=== PATIENT | female | born 1950 | race Caucasian/White ===

== ENCOUNTER 2016-04-19 08:22 | Emergency (ER) | payer OTHER ==
[2016-04-19] MEDS ORDERED: ONDANSETRON 4 MG/2 ML VIAL IVP ONE (08:37)
[2016-04-19] MEDS ORDERED: HYDROcodone-APAP 5 MG -325 MG TABLET PO ONE (08:37)
[2016-04-19] MEDS ORDERED: DIPH,PERTUSS,TET(ADACEL) VAC/PF 0.5 ML (Tdap) IM ONE (08:40)
[2016-04-19 08:44] VITALS: RESP 16; TEMP 97.1
--- NOTE | 2016-04-19 08:45 | PDOC ---
Fall HPI - General Chief Complaint: Fall Stated Complaint: wrist pain Date Seen by Provider: 04/19/16 Time Seen by Provider: 08:39 Source: POSITIVE: Patient, Other (daughter) Exam Limitations: POSITIVE: No limitations Nurse's Notes Reviewed & Considered: Yes - History of Present Illness Initial Comments: The patient comes in today after a fall. Patient was out chasing after her horses in her slippers and house coat when she slipped on the ice and fell. This resulted in her hitting her head, her glasses abraded the inner [place] right side of her nose, bruising over her forehead, wrist pain and bruising on the right, left sided elbow, left sided knee and tibial abrasions and pain. Fall was caused by a trip over a wire. Have you received a tetanus shot in the past 10 years?: No Body Location Affected: REPORTS: Head, Upper Extremity (L), Upper Extremity (R) , Lower Extremity (L), Forehead, Face Timing: REPORTS: Abrupt Duration: 1/2 hour Severity: Moderate Context of Fall: REPORTS: Tripped Location of Fall: REPORTS: Home Fell From Height (in feet): 0 Quality: REPORTS: "Pain" Associated Symptoms: REPORTS: Dazed Location of Injuries / Pain: REPORTS: Right, Left, Face, Nose, Elbow, Wrist, Knee Any Prior Injuries Related to Current Complaint?: No - Patient Home Medications Home Medications: Home Medications Calcium 500 mg PO DAILY 01/23/11 Estrogens, Conj Vaginal Cream [Premarin Vaginal Cream] 1 appful TOPICAL PRN Lutein 20 mg PO AC cap 02/01/14 HYDROcodone/APAP 5/325 Tab [[place] 5/325 Tab] 1 - 2 each PO Q6H PRN #20 tablet - Patient Allergies Allergies/Adverse Reactions: Allergies Allergy/AdvReac Type Severity Reaction Status Date / Time Sulfa (Sulfonamide AdvReac Intermediate VOMITING Verified 04/19/16 08:29 Antibiotics) Past Medical History - heen HEENT History: Denies History Cardiovascular History: Denies History Additional Cardiovasular History: 08/01/13 ATRIAL TACHYCARDIA, WORE A HOLTER MONITER, STARTED ON VERAPAMIL WITH NO FURTHER OCCURENCES Respiratory History: Denies History Gastrointestinal History: Denies History Genitourinary History: Denies History Endocrine History: Denies History Musculoskeletal History:  Prosthesis or Implant: No Additional Musculoskeletal History: PT HAS ERYTHEMA NODOSUM, ALSO HAS MUSCLE PROBLEM AND USES PREDNISONE NEEDED. LAST DOSE 2 MONTHS. Neurological History: Denies History Blood Disorders: Denies History Psychiatric History: Denies History History of Sexually Transmitted Diseases: No Cancer History: Denies History History of MDRO: No History of Other Communicable Diseases: No Alcohol Use: None Substance Use Type: None Previous Surgical History: No Type / Date of Surgery: COLONOSCOPY/ TUBAL Anesthesia Reactions: No Malignant Hyperthermia: No Significant Family History: No pertinent family hx ROS - Limitations ROS Limitations: No Limitations Constitution: REPORTS: Denies Symptoms Cardiovascular: REPORTS: Denies Cardiac Symptoms Respiratory: REPORTS: Denies Resp Symptoms Neurological: REPORTS: Denies Neuro Symptoms Gastrointestinal: REPORTS: Nausea Endocrine: REPORTS: Denies Symptoms Musculoskeletal: REPORTS: Joint Pain Genitourinary: REPORTS: Denies Symptoms Eyes: REPORTS: Denies Symptoms ENT: REPORTS: Nose Pain Skin: REPORTS: Denies Skin Symptoms Lympathic: REPORTS: Denies Lympathic Symptoms Immunologic: POSITIVE: Denies Symptoms Psychiatric: POSITIVE: Denies Psych Symptoms Fall Physical Exam - General Appearance General Appearance: POSITIVE: Alert, Cooperative, Mild Distress - HEENT HEENT: POSITIVE: Eyes Inspection Nml, Ears Inspection Nml, Oral/Dental Inspect. Nml, Pharynx Inspect. Nml, PERRL, EOMI, Other (Abrasion bridge of the nose on the right. Dried blood in the bilateral nares present.) - Pupil Size Pupil Size: 4 mm: Bilateral - Neck Neck: POSITIVE: Non Tender, Painless ROM, Trachea Midline - Respiratory / CVS Respiratory / CVS: POSITIVE: Chest Non Tender, No Ecchymosis, Breath Sounds Normal, No Respiratory Distress, Heart Sounds Normal, Regular Rate/Rhythm - Abdomen Abdomen: Soft: (All Quadrants), Normal Bowel Sounds: (All Quadrants), Denies Tenderness: (All Quadrants) - Neuro / Psych Neuro / Psych: POSITIVE: Oriented X3, hand developer Normal As Tested, Motor Normal, Sensation Normal, Mood Appropriate, Affect Appropriate - Skin Skin: POSITIVE: Warm, Dry, Laceration (Patient with multiple skin lesions including bridge or nose, left elbow, left knee.) - Back Back: POSITIVE: Normal Inspection, No CVA Tenderness, Non Tender, Painless ROM - Extremities Extremity Assessment: Tender: (RUE), (LUE), (LLE), Ecchymosis: (RUE), (LUE), ( LLE), Abrasion: (RUE), (LUE), (LLE), Avulsion: (LLE), (LUE), [place] Tenderness: (RUE), (LUE), (LLE) Joint Exam: POSITIVE: Painful (Right wrist, left elbow, left knee.) Procedures - Laceration/Wound Repair Did patient have a laceration repair: No Fall Progress - Results Reviewed by me Xrays/CTs/US Reviewed by me: No Discussed with Radiologist: No Lab Results Reviewed: Yes Lab Results:: Laboratory Results 04/19/16 Range/Units 09:15 WBC 10.88 H (4.8-10.8) 10^3/uL RBC 4.47 (4.20-5.40) 10^6/uL Hgb 13.0 (12.0-16.0) g/dL Hct 39.4 (37.0-47.0) % MCV 88.1 (81-99) FL MCH 29.1 (27-31) PG MCHC 33.0 (33-37) g/dL RDW Std Deviation 45.2 (39-50) fL RDW Coeff of [place] 14.4 (11.5-14.5) % Plt Count 255 (140-350) 10*3/uL MPV 9.0 (7.4-12.2) FL Sodium 140 (135-145) meq/L Potassium 4.1 (3.8-5.2) meq/L Chloride 105 (98-112) meq/L Carbon Dioxide 26 (23-33) meq/L Anion Gap 9 (5-20) BUN 13 (7-22) mg/dL Creatinine 0.8 (0.50-1.20) mg/dL Estimated GFR > 60 (>60 ml/min/1.73m(2)) BUN/Creatinine Ratio 16.25 (6-20) Glucose 104 (78-110) mg/dL Calculated Osmolality 289.0 (267-292) mOsm/kg Calcium 9.3 (8.7-10.7) mg/dL Magnesium 2.0 (1.6-2.4) mg/dL Total Bilirubin 0.4 (0.3-1.2) mg/dL AST 24 (8-39) IU/L ALT 26 (9-52) IU/L Alkaline Phosphatase 102 (38-126) IU/L Total Protein 6.4 (6.1-8.0) g/dL Albumin 3.5 (3.5-4.8) g/dL Globulin 2.9 (2.50-4.10) g/dL Albumin/Globulin Ratio 1.20 L (1.3-2.0) mg/g TSH 2.02 (0.2700-4.2000) uIU/mL Free T4 1.15 (0.93-1.71) ng/dL - Patient's Progress Pain Medication Addressed: POSITIVE: Yes Patient Care Time - Estimated PCT Patient Care Time (In Minutes): 20 Vital Signs - VS Reviewed Vital Signs Reviewed: Yes Discharge Clinical Impression: Wrist fracture, Abrasions of multiple sites, Contusion, Elbow injury Condition: Stable Prescriptions / Orders: HYDROcodone/APAP 5/325 Tab [[place] 5/325 Tab] 1 - 2 each PO Q6H PRN #20 tablet PRN Reason: Pain Patient Instructions Given at Discharge: Wrist Fracture in Adults (ED), Contusion in Adults (ED), Abrasion (ED) Additional Instructions: There is a fracture identified in the x-ray of the right wrist. The x-ray of the left elbow does not reveal any obvious fracture however there does appear to be some fluid in the joint and I suspect that there may be a fracture there as well. The CAT scan of the head does not reveal any obvious fracture or evidence of internal bleeding. Recommend that you keep both arms splinted and elevated. Ice to the right wrist and left elbow as well as to the left knee as needed. Dressings have been applied to the abrasions. You can take ibuprofen 4 -600 mg every 6 hours as needed for pain. In addition your been prescribed [place] 5/325 which she can take one or 2 every 6 hours as needed for pain. Return to the emergency room if increased pain, sign of wound infection, increased headache or confusion, any worsening or change in symptoms. Recommend follow-up with orthopedic surgery, call on Thursday to arrange follow- up appointment. Follow Up With: WEN FAY [Primary Care Provider] -
[2016-04-19] MEDS ORDERED: BACITRACIN 0.9 GM PACKET OINT TOPICAL ONE ×2 (08:49→08:52)
[2016-04-19] MEDS ORDERED: Ondansetron ODT Tab 4 MG TAB PO ONE ×2 (08:49→08:52)
[2016-04-19 09:20] LABS: HEMATOCRIT 39.4 % (37.0-47.0); MEAN CORPUSCULAR HEMOGLOBIN 29.1 PG (27-31); RDW COEFFICIENT OF VARIATION 14.4 % (11.5-14.5); RED BLOOD COUNT 4.47 10^6/uL (4.20-5.40); WHITE BLOOD COUNT 10.88 10^3/uL (4.8-10.8)
[2016-04-19 09:30] LABS: ASPARTATE AMINO TRANSFERASE 24 IU/L (8-39); BILIRUBIN,TOTAL 0.4 mg/dL (0.3-1.2); BLOOD UREA NITROGEN 13 mg/dL (7-22); BUN/CREATININE RATIO 16.25 (6-20); CALCIUM 9.3 mg/dL (8.7-10.7); CHLORIDE 105 meq/L (98-112); CREATININE 0.8 mg/dL (0.50-1.20); EST GLOMERULAR FILTRATION > 60 (>60 ml/min/1.73m(2)); GLUCOSE 104 mg/dL (78-110); POTASSIUM 4.1 meq/L (3.8-5.2); SODIUM 140 meq/L (135-145); TOTAL PROTEIN 6.4 g/dL (6.1-8.0)
[2016-04-19 09:54] LABS: FREE T4 (FREE THYROXINE) 1.15 ng/dL (0.93-1.71)
--- NOTE | 2016-04-19 10:11 | DI ---
HISTORY: Patient fell, complaining of pain throughout the wrist joint. FINDINGS: Examination reveals soft tissue swelling. There is an incomplete triradiate fracture of t he distal radius. IMPRESSION: 1. Incomplete triradiate fracture of the distal radius with evidence of soft tissue swelling. NOTIFICATION: The above findings were phoned to Elizabeth Grissom in the ER Department on 04/19/2016 at 12: 30pm EST.
--- NOTE | 2016-04-19 10:13 | DI ---
HISTORY: Patient fell this morning, sustained abrasion to posterior aspect of elbow. Pain with move ment. FINDINGS: Examination reveals mild soft tissue swelling. There is no definite evidence of recent fr acture or dislocation. IMPRESSION: 1. Mild soft tissue swelling without acute fracture.
--- NOTE | 2016-04-19 10:18 | DI ---
HISTORY: Patient fell this morning, sustained abrasion to anterior aspect of knee. FINDINGS: Examination reveals mild soft tissue swelling. There are early degenerative arthritic laney nges. No definite evidence of recent fracture or dislocation is apparent. IMPRESSION: 1. Mild soft tissue swelling without acute fracture. 2. Early degenerative arthritic changes.
--- NOTE | 2016-04-19 10:20 | DI ---
HISTORY: Patient fell this morning, sustained abrasion to anterior aspect of the tibia/fibula region . FINDINGS: Examination reveals mild soft tissue swelling. There is no definite evidence of recent fr acture or dislocation. IMPRESSION: 1. Mild soft tissue swelling without acute fracture. If symptoms should persist, a follow-up examin ation is suggested.
--- NOTE | 2016-04-19 10:26 | DI ---
HISTORY: Patient fell this morning. Swelling and bruising to right forehead. PREVIOUS EXAM: None available. TECHNIQUE: Multiple helically acquired CT images are obtained through the brain without contrast. FINDINGS: CT images demonstrate normal, symmetric ventricles and other CSF containing spaces. There is no mass, hemorrhage or midline shift. There is some minimal age-appropriate volume loss. No acute calvarial abnormalities are demonstrated. IMPRESSION: 1. No acute intracranial pathology.
--- NOTE | 2016-04-19 10:52 | PDOC ---
Transfer of Care - Care Accepted Time Care Transferred: 09:00 Report from Transferring Physician Received: Yes (Dr. Alaniz) MDM / ED Course: The patient is a 66-year-old female who was initially evaluated per Dr. Alaniz. She states that she fell this morning at home while chasing after a horse. She hit the right side of her forehead, injured her right wrist, left elbow, left knee and leg. She did not have any loss of consciousness. She denies any neck or back pain, chest wall or abdominal pain. Dr. Alaniz had seen the patient initially and ordered a CT scan of the head, x-ray of the right wrist, left elbow, left knee and left tib-fib. She does have several abrasions and had received a tetanus update here today. In addition some blood work was drawn and she did receive a dose of [place] for pain. I initially saw the patient when she returned from x-ray and CT. Her main complaints are left elbow pain with any type of movement of her left arm or hand as well as right wrist pain. She does not take any blood thinner medications. Home Medications: Home Medications Calcium 500 mg PO DAILY 01/23/11 Estrogens, Conj Vaginal Cream [Premarin Vaginal Cream] 1 appful TOPICAL PRN Lutein 20 mg PO AC cap 02/01/14 HYDROcodone/APAP 5/325 Tab [[place] 5/325 Tab] 1 - 2 each PO Q6H PRN #20 tablet Allergies/Adverse Reactions: Allergies Sulfa (Sulfonamide Antibiotics) Adverse Reaction (Intermediate, Verified 08:29) VOMITING Vital Signs Reviewed: Yes Nurse's Notes Reviewed & Considered: Yes - Pending Patient Care Items Pending Patient Care Items: POSITIVE: Labs, X-ray Results, CT / MRI Results - Re-Evaluation of Patient Disposition of Patient: POSITIVE: Discharged Counseled: POSITIVE: Patient, Family, RE: Lab Results, RE: Radiology Results, RE : DX, RE: Need for F/U Clinical Impression Documented: Yes - Results Reviewed Lab Results Reviewed by Me: Yes Lab Results: Laboratory Results 04/19/16 Range/Units 09:15 WBC 10.88 H (4.8-10.8) 10^3/uL RBC 4.47 (4.20-5.40) 10^6/uL Hgb 13.0 (12.0-16.0) g/dL Hct 39.4 (37.0-47.0) % MCV 88.1 (81-99) FL MCH 29.1 (27-31) PG MCHC 33.0 (33-37) g/dL RDW Std Deviation 45.2 (39-50) fL RDW Coeff of [place] 14.4 (11.5-14.5) % Plt Count 255 (140-350) 10*3/uL MPV 9.0 (7.4-12.2) FL Sodium 140 (135-145) meq/L Potassium 4.1 (3.8-5.2) meq/L Chloride 105 (98-112) meq/L Carbon Dioxide 26 (23-33) meq/L Anion Gap 9 (5-20) BUN 13 (7-22) mg/dL Creatinine 0.8 (0.50-1.20) mg/dL Estimated GFR > 60 (>60 ml/min/1.73m(2)) BUN/Creatinine Ratio 16.25 (6-20) Glucose 104 (78-110) mg/dL Calculated Osmolality 289.0 (267-292) mOsm/kg Calcium 9.3 (8.7-10.7) mg/dL Magnesium 2.0 (1.6-2.4) mg/dL Total Bilirubin 0.4 (0.3-1.2) mg/dL AST 24 (8-39) IU/L ALT 26 (9-52) IU/L Alkaline Phosphatase 102 (38-126) IU/L Total Protein 6.4 (6.1-8.0) g/dL Albumin 3.5 (3.5-4.8) g/dL Globulin 2.9 (2.50-4.10) g/dL Albumin/Globulin Ratio 1.20 L (1.3-2.0) mg/g TSH 2.02 (0.2700-4.2000) uIU/mL Free T4 1.15 (0.93-1.71) ng/dL - Consult Recommendations:: Lab work done here in the emergency room was reviewed and was all unremarkable. X-ray of the left tib-fib and knee are negative for fracture. X-ray of the left elbow reveals no obvious fracture per radiologist however she does have some soft tissue swelling. Also on my evaluation of the x-ray I thought there might be a small fat pad sign. The patient does have significant pain in the left elbow especially with pronation and supination. I suspect she may have an occult fracture and she was placed in a sugar tong splint and sling. In addition x-ray of the right wrist does reveal a distal radius fracture with some extension into the joint per radiologist. There is no significant displacement. She was placed in a sugar tong splint to the right upper extremity as well as well as an arm sling. The abrasions on the left elbow and left knee were cleansed and dressings applied. Wound care instructions were discussed. CT scan of the head was read as normal per radiologist. The patient was discharged home and has multiple family members that can assist her as her mobility and ability to perform regular duties will be limited with both of her arms in a splint and sling. She is advised to take ibuprofen 4-600 mg every 6 hours as needed for pain and was prescribed [place] as needed for breakthrough pain. She will return to the emergency room if any worsening or change in symptoms. She is advised follow-up with orthopedic surgery, she will call on Thursday to schedule an appointment. Patient Care Time - Estimated PCT Patient Care Time (In Minutes): 25 Vital Signs - Recent Vital Signs Vital Signs: Vital Signs (Last 8 hours) Temp Pulse Resp Pulse Ox 04/19/16 08:33 97.1 F 66 16 94 - VS Reviewed Vital Signs Reviewed: Yes Discharge Clinical Impression: Wrist fracture, Abrasions of multiple sites, Contusion, Elbow injury Condition: Stable Prescriptions / Orders: HYDROcodone/APAP 5/325 Tab [[place] 5/325 Tab] 1 - 2 each PO Q6H PRN #20 tablet PRN Reason: Pain Patient Instructions Given at Discharge: Wrist Fracture in Adults (ED), Contusion in Adults (ED), Abrasion (ED) Additional Instructions: There is a fracture identified in the x-ray of the right wrist. The x-ray of the left elbow does not reveal any obvious fracture however there does appear to be some fluid in the joint and I suspect that there may be a fracture there as well. The CAT scan of the head does not reveal any obvious fracture or evidence of internal bleeding. Recommend that you keep both arms splinted and elevated. Ice to the right wrist and left elbow as well as to the left knee as needed. Dressings have been applied to the abrasions. You can take ibuprofen 4 -600 mg every 6 hours as needed for pain. In addition your been prescribed [place] 5/325 which she can take one or 2 every 6 hours as needed for pain. Return to the emergency room if increased pain, sign of wound infection, increased headache or confusion, any worsening or change in symptoms. Recommend follow-up with orthopedic surgery, call on Thursday to arrange follow- up appointment. Follow Up With: WEN FAY [Primary Care Provider] -
== END 2016-04-19 10:35 | disposition home or self-care (01) ==
LOC: ER 08:22
DX: S52.591A Other fractures of lower end of right radius, initial encounter for closed fracture (principal); S00.83XA Contusion of other part of head, initial encounter; S80.212A Abrasion, left knee, initial encounter; S00.31XA Abrasion of nose, initial encounter; S50.312A Abrasion of left elbow, initial encounter; S50.02XA Contusion of left elbow, initial encounter; S80.12XA Contusion of left lower leg, initial encounter; W00.0XXA Fall on same level due to ice and snow, initial encounter
CPT/HCPCS: 29125; 70460; 73080; 73110; 73562; 73590; 80053; 83735; 84439; 84443; 85027; 90471; 99283

== ENCOUNTER → 2016-04-21 | Outpatient (CLI) | payer OTHER | LOC: MMPC 10:00 | PROVIDERS: ATTEND Orthopaedic Surgery | DX: S52.571A Other intraarticular fracture of lower end of right radius, initial encounter for closed fracture (principal); M25.422 Effusion, left elbow; W18.09XA Striking against other object with subsequent fall, initial encounter | CPT/HCPCS: 99203; G0463 ==

== ENCOUNTER → 2016-04-25 | Outpatient (CLI) | payer OTHER ==
--- NOTE | 2016-04-27 04:24 | DI ---
LEFT ELBOW, 04/25/2016 8:50 AM: Clinical History: Closed nondisplaced fracture of the left radial head with routine healing. Previous Exam: 04/19/2016. 3 views are submitted. The large joint effusion that was present on the previous exam is no longer vi sualized. No obvious fracture of the radial head is identified. The olecranon and distal humerus also show no obvious fracture. Reading: The joint effusion has resolved. No definite fracture is identified on the current study.
--- NOTE | 2016-04-27 04:24 | DI ---
LEFT SHOULDER, 04/25/2016 8:59 AM: Clinical History: Acute left shoulder pain. Previous Exam: None at this facility. 3 views are submitted. There is no fracture or dislocation identified. On the glenoid fossa view, the re is a radiodensity in the region of the greater tuberosity and this may represent calcific tendinit is probably in the supraspinatus tendon. Mild narrowing of the glenohumeral joint space is present. T he visualized portions of the left lung and apex are normal. Reading: There may be calcific tendinitis involving the supraspinatus tendon. Mild arthritic changes are prese nt in the glenohumeral joint.
--- NOTE | 2016-04-27 04:24 | DI ---
RIGHT WRIST, 04/25/2016 8:50 AM: Clinical History: Closed fracture of the distal right radius with routine healing. Previous Exam: 04/19/2016. 3 views through a fiberglass cast are submitted. There is a fracture involving the radial styloid wit h intra-articular involvement of at least 50%. Alignment and position are anatomic. Reading: Intra-articular fracture of the distal radius, nondisplaced. Articular surface involvement is at leas t 50%.
== END ==
LOC: ORTHO 10:22
PROVIDERS: ATTEND Orthopaedic Surgery
DX: S52.591D Other fractures of lower end of right radius, subsequent encounter for closed fracture with routine healing (principal); S52.125D Nondisplaced fracture of head of left radius, subsequent encounter for closed fracture with routine healing; M25.512 Pain in left shoulder; M75.32 Calcific tendinitis of left shoulder
CPT/HCPCS: 29075; 73030; 73080; 73110; 99213

== ENCOUNTER → 2016-05-02 | Outpatient (CLI) | payer OTHER ==
--- NOTE | 2016-05-02 12:50 | DI ---
XR WRIST COMPLETE MIN 3VW,05/02/2016 11:05 AM: Clinical History: Fracture of the distal right radius Previous Exam: April 25, 2016 Findings: 3 views of right wrist are obtained, and demonstrate a comminuted intra-articular fracture of the rig ht distal radius. Overlying plaster limits fine bony detail. Impression: Healing intra-articular right distal radial fracture.
--- NOTE | 2016-05-02 12:52 | DI ---
XR ELBOW COMPLETE MIN 3VW,05/02/2016 11:05 AM: Clinical History: Left elbow pain. Previous Exam: April 25, 2016 Findings: 3 views of the left elbow are obtained, and demonstrate diffuse osteopenia. There is some mild and these off the at the insertion of the triceps tendon. There is no elbow joint effusion identified. Impression: Diffuse osteopenia without visible fractures.
== END ==
LOC: ORTHO 11:19
PROVIDERS: ATTEND Orthopaedic Surgery
DX: S52.571D Other intraarticular fracture of lower end of right radius, subsequent encounter for closed fracture with routine healing (principal); M25.522 Pain in left elbow
CPT/HCPCS: 73080; 73110; 99213; G0463

== ENCOUNTER → 2016-05-22 | Outpatient (CLI) | payer OTHER ==
--- NOTE | 2016-05-23 08:00 | DI ---
RIGHT WRIST, 05/22/2016 3:48 PM: Clinical History: Closed fracture of the distal right radius with routine followup. Previous Exam: 04/19/2016; 04/25/2016; 05/02/2016. 3 views are submitted through a fiberglass cast. There is sclerosis at the site of the fracture of th e distal radius. There is an intra-articular component involving about 30-35% of the total articular surface. There is slight loss of length in the distal radial articular surface is in neutral position . The ulna is normal. Reading: Progressive healing of the intra-articular fracture of the distal radius with no change in alignment and position.
== END ==
LOC: ORTHO 15:53
PROVIDERS: ATTEND Orthopaedic Surgery
DX: S52.571D Other intraarticular fracture of lower end of right radius, subsequent encounter for closed fracture with routine healing (principal)
CPT/HCPCS: 73110

== ENCOUNTER → 2016-06-05 | Outpatient (CLI) | payer OTHER ==
--- NOTE | 2016-06-05 16:13 | DI ---
RIGHT WRIST, 06/05/2016 3:17 PM: Clinical History: Closed fracture of the distal end of the right radius with routine healing. Previous Exam: 05/22/2016. 3 views are submitted. There is sclerosis at the fracture site of the distal radius. There is still s tep off of the radial articular surface between the radial styloid and the medial portion of the radi al articular surface. The distal articular surface is in neutral position. The fracture lucency is no t visible. There is osteoporosis. Readin. Essentially healed fracture of the distal radius with intra-articular involvement. The distal art icular surface is initial position. 2. Osteoporosis.
== END ==
LOC: ORTHO 15:30
PROVIDERS: ATTEND Orthopaedic Surgery
DX: S52.571D Other intraarticular fracture of lower end of right radius, subsequent encounter for closed fracture with routine healing (principal)
CPT/HCPCS: 73110

== ENCOUNTER → 2016-06-27 | Outpatient (CLI) | payer OTHER ==
--- NOTE | 2016-06-27 11:15 | DI ---
RIGHT WRIST, 06/27/2016 9:01 AM: Clinical History: Closed fracture of the distal right radius with routine healing and subsequent enco unter. 06/05/2016. Previous Exam: None at this facility. 3 views are submitted. The comminuted intra-articular fracture shows progressive obliteration of the fracture lucencies. Alignment and position are unchanged. The distal radial articular surface is in n eutral position. There is osteoporosis. Reading: Progressive healing of the intra-articular and slightly impacted fracture of the distal radius. The d istal articular surface remains in neutral position.
== END ==
LOC: ORTHO 10:10
PROVIDERS: ATTEND Orthopaedic Surgery
DX: S52.571D Other intraarticular fracture of lower end of right radius, subsequent encounter for closed fracture with routine healing (principal)
CPT/HCPCS: 73110

== ENCOUNTER 2016-08-10 03:14 | Observation (INO) | payer OTHER ==
[2016-08-10] MEDS ORDERED: ASPIRIN 81 MG (BABY) CHEWABLE TABLET PO ONE (03:28)
[2016-08-10] MEDS ORDERED: NORMAL SALINE 10 ML SYRINGE FLUSH IVP PRN ×2 (03:28→06:54)
[2016-08-10 03:34] LABS: BASOPHILS % (AUTO) 1.1 % (0-1); EOSINOPHILS # (AUTO) 0.42 10*3/UL; EOSINOPHILS % (AUTO) 4.5 % (0-8); HEMATOCRIT 42.9 % (37.0-47.0); HEMOGLOBIN 14.3 g/dL (12.0-16.0); LYMPHOCYTES # (AUTO) 2.36 10*3/uL; MEAN CORPUSCULAR HEMOGLOBIN 29.1 PG (27-31); MEAN CORPUSCULAR HGB CONC 33.3 g/dL (33-37); MEAN CORPUSCULAR VOLUME 87.4 FL (81-99); MEAN PLATELET VOLUME 9.3 FL (7.4-12.2); MONOCYTES # (AUTO) 0.85 10*3/UL (0.3-0.8); NEUTROPHILS # (AUTO) 5.68 10*3/UL; NEUTROPHILS % (AUTO) 60.2 % (50-80); RED BLOOD COUNT 4.91 10^6/uL (4.20-5.40)
[2016-08-10 03:35] LABS: PLATELET MORPHOLOGY COMMENT NORMAL MORPHOLOGY (NORM); RBC MORPHOLOGY COMMENT NORMAL MORPHOLOGY (NORM); WBC MORPHOLOGY COMMENT NORMAL MORPHOLOGY (NORM)
[2016-08-10 03:41] LABS: BLOOD UREA NITROGEN 15 mg/dL (7-22); BUN/CREATININE RATIO 16.66 (6-20); CALCIUM 9.6 mg/dL (8.7-10.7); EST GLOMERULAR FILTRATION > 60 (>60 ml/min/1.73m(2)); LIPASE 307 IU/L (23-300); SERUM ALBUMIN 3.8 g/dL (3.5-4.8)
[2016-08-10 03:53] LABS: CREATINE KINASE MB 1.23 NG/ML (0.00-5.00); TROPONIN I < 0.012 ng/mL (< 0.040)
--- NOTE | 2016-08-10 05:40 | DI ---
HISTORY: Elevated pancreatic enzymes. TECHNIQUE: Contiguous axial images of the chest, abdomen, and pelvis were obtained and submitted for interpretation. FINDINGS: No pneumothorax, pleural effusion, or area of consolidation. There are patchy areas of gr ound glass attenuation with interlobular septal thickening, most conspicuous in the lower lung zones. No evidence of great vessel injury. The main pulmonary artery is dilated at 3.2 cm, a finding associ ated with pulmonary artery hypertension. No main or segmental pulmonary emboli. Heart size is at th e upper limits of normal with no pericardial effusion. There are mitral annular calcifications. No mediastinal or hilar lymphadenopathy. There are coarse calcifications in the right lobe of the th yroid. Normal CT appearance of the liver, gallbladder, spleen, and adrenal glands. There is a 1.2 cm mass w ith gas and fluid attenuation along the inferior margin of the head of the pancreas immediately adjac ent to the second segment of the duodenum. This is favored to represent a duodenal diverticulum, thou gh is incompletely characterized on this exam. Multiple hypoattenuating subcentimeter renal lesions are present bilaterally, too small to accurately characterize. Punctate non-obstructive nephroliths a re noted in the interpolar region of the left kidney. Imaged portions of the ureters are unremarkabl e. Hollow viscus organs demonstrate normal course and caliber. There is no intraperitoneal free air or f luid. Vascular structures are intact with atheromatous aortoiliac calcifications. No abdominal lymp hadenopathy is present. No acute osseous abnormality or aggressive osseous lesion. There is diffuse demineralization of the osseous structures with multilevel degenerative disc disease. IMPRESSION: 1. Patchy areas of ground glass attenuation with interlobular septal thickening, most conspicuous in the lower lung zones, a non-specific finding with a broad differential that includes atypical infecti on, as well as pulmonary edema and hemorrhage. Follow-up to resolution is recommended. 2. Dilated main pulmonary artery to 3.2 cm, a finding associated with pulmonary artery hypertension. 3. There is a mass with gas and fluid attenuation along the inferior margin of the head of the pancre as immediately adjacent to the second segment of the duodenum is favored to represent a duodenal dive rticulum. Triphasic pancreatic imaging may be obtained for further characterization if no priors are available for comparison. Alternatively, and upper GI or endoscopy may provide further information. 4. Probable punctate non-obstructive left renal nephroliths.
--- NOTE | 2016-08-10 06:53 | PDOC ---
Chest Pain HPI - General Chief Complaint: Chest Pain Stated Complaint: chest pain/pressure Date Seen by Provider: 08/10/16 Time Seen by Provider: 03:15 Source: Patient Exam Limitations: POSITIVE: No limitations Treatment Prior to Arrival: REPORTS: None Nurse's Notes Reviewed & Considered: Yes - History of Present Illness Initial Comments: The patient is a 66-year-old female who presents to the emergency department with chest pain. She states that at approximately 11:30 she was woken up with pain and pressure in her chest that radiated through to her back and up the right side of her neck. She states that the pain was quite intense at home. She subsequently decided to come here to the emergency department. By the time she arrives here the pain seems to be lessening somewhat however is still present. She has not had similar pain in the past. She does report some associated shortness of breath however denies increased pain with taking a breath. She denies associated palpitation, nausea or vomiting, diaphoresis or any other associated symptoms. She has not had similar pain previously. She does not have any known history of heart disease or blood clots. She denies history of hypertension, diabetes or hyperlipidemia. She does not take any prescription medications however takes multiple supplements. 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 Her dad had a heart attack in his late 60s. She does not have any history of tobacco use. - Patient Home Medications Home Medications: Home Medications Calcium 500 mg PO DAILY 01/23/11 Estrogens, Conj Vaginal Cream [Premarin Vaginal Cream] 1 appful TOPICAL PRN Lutein 20 mg PO AC cap 02/01/14 - Patient Allergies Allergies/Adverse Reactions: Allergies Allergy/AdvReac Type Severity Reaction Status Date / Time Sulfa (Sulfonamide AdvReac Intermediate VOMITING Verified 04/19/16 08:29 Antibiotics) Past Medical History - heen HEENT History: Denies History Cardiovascular History: Denies History Additional Cardiovasular History: 08/01/13 ATRIAL TACHYCARDIA, WORE A HOLTER MONITER, STARTED ON VERAPAMIL WITH NO FURTHER OCCURENCES Respiratory History: Denies History Gastrointestinal History: Denies History Genitourinary History: Denies History Endocrine History: Denies History Musculoskeletal History:  Prosthesis or Implant: No Additional Musculoskeletal History: PT HAS ERYTHEMA NODOSUM, ALSO HAS MUSCLE PROBLEM AND USES PREDNISONE NEEDED. LAST DOSE 2 MONTHS. Neurological History: Denies History Blood Disorders: Denies History Psychiatric History: Denies History History of Sexually Transmitted Diseases: No Female Reproductive History: Denies History Obstetrical History: Denies History Cancer History: Denies History In Past Year Been Physically Harmed or Verbally Threatened: No History of MDRO: No History of Other Communicable Diseases: No Tobacco Use: Never Smoker Alcohol Use: None Substance Use Type: None Previous Surgical History: No Type / Date of Surgery: COLONOSCOPY/ TUBAL Anesthesia Reactions: No Malignant Hyperthermia: No Significant Family History: No pertinent family hx Past Medical History Reviewed: Reviewed - No Changes ROS - Limitations ROS Limitations: No Limitations Constitution: DENIES: Chills, Fever Cardiovascular: REPORTS: Chest Pain. DENIES: Heart Racing, Heart Palpitations, Blood Pressure Problem, Edema Respiratory: REPORTS: Shortness Of Breath. DENIES: Cough Non Productive, Cough Productive, Hurts To Breathe Neurological: REPORTS: Dizziness. DENIES: Numbness, Weakness Gastrointestinal: DENIES: Abdominal Pain, Vomitting, Diarrhea Musculoskeletal: REPORTS: Denies MS Symptoms Eyes: REPORTS: Denies Symptoms ENT: REPORTS: Denies Symptoms Skin: DENIES: Rash Chest Pain PE - General Appearance General Appearance: REPORTS: Alert, Cooperative, No Acute Distress - HEENT HEENT: POSITIVE: Head Inspection Nml, Eyes Inspection Nml, Ears Inspection Nml, Nose Inspection Nml, Pharynx Inspect. Nml - Neck Neck: REPORTS: Normal Inspection. DENIES: JVD Present - Respiratory Respiratory: REPORTS: No Respiratory Distress, Breath Sounds Normal, Chest Non- Tender - Cardiovascular Cardiovascular: REPORTS: Regular Rate and Rhythm, Heart Sounds Normal Peripheral Pulses: Dorsalis-pedis (R): 2+, Dorsalis-pedis (L): 2+ - Abdomen Abdomen: Soft: (All Quadrants), Denies Tenderness: (All Quadrants), No Palpabale Mass: (All Quadrants), No Distention: (All Quadrants) - Skin Skin: REPORTS: Intact, No Rash - Extremities Extremity: Normal ROM: (All Extremities), Normal Inspection: (All Extremities) - Neurological / Psychological Neurological: POSITIVE: Oriented X3, Motor Normal, Sensation Normal Chest Pain Progress - Results Reviewed by me Xrays/CTs/US Reviewed by me: Yes Discussed with Radiologist: Yes Radiology Findings: Chest x-ray showed normal heart size and normal lung plummer. CT a of the chest revealed no evidence of dissection or aneurysm, no evidence of PE, nonspecific opacities in the lung plummer. CT scan of the abdomen shows a fluid-filled density adjacent to the head of the pancreas which most likely represents a diverticulum per radiologist, no other acute findings. Lab Results Reviewed: Yes Lab Results:: Laboratory Results 08/10/16 Range/Units 03:20 WBC 9.43 (4.8-10.8) 10^3/uL RBC 4.91 (4.20-5.40) 10^6/uL Hgb 14.3 (12.0-16.0) g/dL Hct 42.9 (37.0-47.0) % MCV 87.4 (81-99) FL MCH 29.1 (27-31) PG MCHC 33.3 (33-37) g/dL RDW Std Deviation 43.7 (39-50) fL RDW Coeff of Kleber 13.9 (11.5-14.5) % Plt Count 279 (140-350) 10*3/uL MPV 9.3 (7.4-12.2) FL Immature Gran % (Auto) 0.2 (0-5) % Neut % (Auto) 60.2 (50-80) % Lymph % (Auto) 25.0 (10-50) % [place] % (Auto) 9.0 (5-15) % Eos % (Auto) 4.5 (0-8) % Baso % (Auto) 1.1 H (0-1) % Immature Gran # (Auto) 0.02 10*3/UL Neut # (Auto) 5.68 10*3/UL Lymph # (Auto) 2.36 10*3/uL [place] # (Auto) 0.85 H (0.3-0.8) 10*3/UL Eos # (Auto) 0.42 10*3/UL Baso # (Auto) 0.10 10*3/UL WBC Morphology Comment Normal morphology (NORM) Plt Morphology Comment Normal morphology (NORM) RBC Morph Comment Normal morphology (NORM) D-Dimer 0.37 (0.00-0.59) mg/L Sodium 144 (135-145) meq/L Potassium 3.9 (3.8-5.2) meq/L Chloride 108 (98-112) meq/L Carbon Dioxide 25 (23-33) meq/L Anion Gap 11 (5-20) BUN 15 (7-22) mg/dL Creatinine 0.9 (0.50-1.20) mg/dL Estimated GFR > 60 (>60 ml/min/1.73m(2)) BUN/Creatinine Ratio 16.66 (6-20) Glucose 92 (78-110) mg/dL Calculated Osmolality 298.0 H (267-292) mOsm/kg Calcium 9.6 (8.7-10.7) mg/dL Magnesium 2.0 (1.6-2.4) mg/dL Total Bilirubin 0.6 (0.3-1.2) mg/dL AST 39 (8-39) IU/L ALT 24 (9-52) IU/L Alkaline Phosphatase 108 (38-126) IU/L CK-MB (CK-2) 1.23 (0.00-5.00) NG/ML Troponin I < 0.012 (< 0.040) ng/mL Total Protein 7.2 (6.1-8.0) g/dL Albumin 3.8 (3.5-4.8) g/dL Globulin 3.4 (2.50-4.10) g/dL Albumin/Globulin Ratio 1.10 L (1.3-2.0) mg/g Amylase 119 H (30-110) U/L Lipase 307 H (23-300) IU/L EKG Interpreted/Reviewed By Me:: Yes EKG Interpretation:: POSITIVE: Normal Sinus Rhythm, Normal Rate, Normal Intervals, Normal QRS, Normal ST/T - Patient's Progress MDM / ED Course: The patient's initial EKG showed a normal sinus rhythm with no acute ST segment or T-wave changes. She was given aspirin per chest pain protocol. Her pain seemed to be starting to subside by the time she arrived here in the emergency department and eventually did resolve for the most part. Her blood pressure was mildly elevated on arrival however came down into the normal range while she was here. Her initial blood work revealed a normal troponin and normal d- dimer. Her amylase and lipase however were mildly elevated. She did undergo CTA of the chest which revealed no evidence of dissection, PE or any other acute findings. CT of the abdomen reveals a fluid-filled collection adjacent to the pancreas head is likely representing diverticulum. At this time the etiology of her chest pain is unclear. Decision was made to admit for further cardiac monitoring and testing. It is also unclear why her pancreas enzymes are mildly elevated and she does have the fluid collection noted on CT adjacent to her pancreas. These findings were discussed with the patient. Dr. Blanco has agreed to admit the patient and the patient is in agreement with this plan. - Consult Counseled: POSITIVE: Patient, Family, RE: Lab Results, RE: Radiology Results, RE : DX Patient Care Time - Estimated PCT Patient Care Time (In Minutes): 45 Vital Signs - Recent Vital Signs Vital Signs: Vital Signs (Last 8 hours) Pulse Pulse Resp BP Pulse Ox 08/10/16 03:41 80 08/10/16 03:14 86 16 158/79 96 - VS Reviewed Vital Signs Reviewed: Yes Discharge Clinical Impression: Chest pain, Elevated pancreatic enzyme Discharge Disposition: Admit to Observation Condition: Stable Date Decision to Admit to Inpatient: 08/10/16 Time Decision to Admit to Inpatient: 06:35
[2016-08-10] MEDS ORDERED: ONDANSETRON 4 MG/2 ML VIAL IVP PRN (06:54)
[2016-08-10] MEDS ORDERED: MORPHINE SULFATE 2 MG/1 ML IV PRN (06:54)
[2016-08-10] MEDS ORDERED: LIDOCAINE W/ SODIUM BICARB 0.5 ML SYR SUBD PRN (06:54)
[2016-08-10] MEDS ORDERED: MORPHINE SULFATE 4 MG/1 ML IVP PRN (08:19)
[2016-08-10] MEDS ORDERED: MORPHINE SULFATE 10 MG/1 ML IV PRN (08:21)
[2016-08-10] MEDS: ENOXAPARIN SODIUM 40 MG/0.4 ML SYRINGE SUBCUT SCH (08:43)
[2016-08-10 09:48] LABS: TROPONIN I < 0.012 ng/mL (< 0.040)
--- NOTE | 2016-08-10 10:22 | EKG ---
[address] [place] [address] Measurements Intervals [place] Rate: 78 P: -29 GA: 141 QRS: 96 QRSD: 101 T: 69 QT: 375 QTc: 408 Interpretive Statements SINUS RHYTHM WITH OCCASIONAL VENTRICULAR PREMATURE COMPLEXES BORDERLINE RIGHT AXIS DEVIATION LOW VOLTAGE SLOW R WAVE PROGRESSION V1-V3, POSSIBLE OLD ANTEROSEPTAL INFARCTION VS LEAD POSITIONING Compared to Ecg of 08-10-13 Ventricular premature complex(es) now present Sinus tachycardia no longer present Short GA interval no longer present Electronically Signed On 08-10-16 15:31:58 MDT by Vidal Turk [email or web address]
--- NOTE | 2016-08-10 12:12 | PDOC ---
History and Physical - History of Present Illness History of Present Illness: This very nice 66-year-old the female who woke up with some chest pressure with radiated to her back in the right side of her neck she describes it more as a pressure not real pain. The pain is now resolved and has had a really good night sleep she denies shortness of breath nausea and vomiting no past medical history of heart disease does not take any meds but is on multiple supplements and has a family history of heart disease in her dad which had an [place] in his 60s she is not a smoker Past Medical History Medical History: Polymyositis Tobacco Use: Never Smoker Substance Use Type: None Medication / Allergies Home Medications: Home Medications Medication Instructions Recorded Confirmed Type Calcium 500 mg PO DAILY 01/23/11 08/10/16 History Estrogens, Conj Vaginal Cream 1 appful TOPICAL PRN 08/05/13 08/10/16 History [Premarin Vaginal Cream] Lutein 20 mg PO AC cap 02/01/14 08/10/16 History Allergies/Adverse Reactions: Allergies Allergy/AdvReac Type Severity Reaction Status Date / Time Sulfa (Sulfonamide AdvReac Intermediate VOMITING Verified 04/19/16 08:29 Antibiotics) Review of Systems - Review of Systems All Systems: Reviewed & No Additional Complaints Except as Stated - Respiratory Respiratory: DENIES: Negative System Review, Cough, Sputum, Dyspnea At Rest, Dyspnea with Exertion, Pleuritic Pain, Hemoptysis, Wheezing, Other, See HPI - Cardiovascular Cardiovascular: REPORTS: Chest Pain. DENIES: Syncope, Palpitations, Orthopnea, Paroxysmal Nocturnal Dyspnea - Gastrointestinal Gastrointestinal / Abdominal: DENIES: Negative System Review, Nausea, Vomiting, Diarrhea, Constipation, Abdominal Pain, Bloody Stool, Poor Appetite, Heartburn, Regurgitation, Bloating, Lactose Intolerance, Melena, Bright Red Blood Per Rectum, Other, See HPI - Genitourinary Genitourinary: DENIES: Negative System Review, Pain, Burning, Hematuria, Incontinence, Urgency, Hesitant Stream, Decreased Stream, Nocutria, Discharge, Sexual Dyfunction, Other, See HPI - Neurological Neurologic: DENIES: Negative System Review, Headache, Numbness/Paresthesia, Tremors, Weakness, Seizures, Head Trauma, LOC, Dizziness, Confusion, Memory Loss , Difficulty Walking, Incoordination, Other, See HPI Exam - Vitals Vital Signs: Vital Signs Temperature 98.7 F Temperature Source Temporal Artery Scan Pulse Rate [Pulse Oximeter] 80 Pulse Rate 82 Respiratory Rate 17 Blood Pressure [Right Arm] 138/69 Pulse Ox 96 Oxygen Delivery Method Room Air Height 5 ft 6 in Weight 46.085 kg - General General Appearance: POSITIVE: No Acute Distress, Cooperative - Eye Eye Exam: POSITIVE: Normal Appearance, PERRL, EOMI - Neck Neck Exam: POSITIVE: No Tenderness, Tenderness - Respiratory Respiratory Exam: POSITIVE: Clear to Auscultation - Bilaterally, Breathing Non Labored, Normal To Percussion - Cardiovascular Cardiovascular Exam: POSITIVE: RRR, No Murmur, No Clicks, No Gallops - GI/Abdominal GI/Abdominal Exam: POSITIVE: Normal Bowel Sounds, Non Distended, Soft - Extremities Extremities Exam: POSITIVE: Normal Capillary Refill, No Clubbing Present, No Edema Present - Neurological Neurological Exam: POSITIVE: Alert, Oriented x 3, CN II-XII Intact, No Facial Droop Results - Labs CBC and BMP: 08/10/16 03:20 08/10/16 03:20 Labs - Last 24 Hours: Laboratory Results 08/10/16 Range/Units 09:20 Total Creatine Kinase 37 (30-135) IU/L Troponin I < 0.012 (< 0.040) ng/mL Assessment and Plan - Patient Problems (1) Chest pain Current Visit: Yes Status: Acute (2) Elevated pancreatic enzyme Current Visit: Yes Status: Acute Comment: CT scan revealed some fluid collection at the head of the pancreas I will get an MR CP in a.m. Photo / Body Diagrams - Uploaded Photos Uploaded Photos:
[2016-08-10 20:41] VITALS: RESP 16
--- NOTE | 2016-08-10 21:34 | DI ---
AP CHEST X-RAY, 08/10/2016 3:28 AM : Clinical History: Chest pain. Previous Exam: 10/03/2013. There is no acute soft tissue or bony abnormality. Heart size is normal. There is no acute infiltrate or effusion, but the lungs are markedly hyperinflated with the diaphragms reaching the 12th ribs judah aterally. There probably is pulmonary arterial hypertension. There are no pulmonary nodules. Readin. There is no acute infiltrate or effusion. 2. There is marked hyperinflation of the lungs in this patient may have emphysema.
[2016-08-11 06:43] LABS: BLOOD UREA NITROGEN 19 mg/dL (7-22); BUN/CREATININE RATIO 23.75 (6-20); CALCIUM 9.1 mg/dL (8.7-10.7); EST GLOMERULAR FILTRATION > 60 (>60 ml/min/1.73m(2)); LIPASE 261 IU/L (23-300); SERUM ALBUMIN 3.3 g/dL (3.5-4.8)
[2016-08-11] MEDS ORDERED: LORazepam 2 MG/1 ML VIAL IVP ONE (09:37)
[2016-08-11] MEDS: ENOXAPARIN SODIUM 40 MG/0.4 ML SYRINGE SUBCUT SCH (10:05)
--- NOTE | 2016-08-11 10:15 | DCSUMMARY ---
Hospitalization Summary Hospital Course: Final Discharge Diagnosis: Current Visit Problems Problem Status Priority Diagnosed Code Chest pain Acute R07.9 Elevated pancreatic enzyme Acute R74.8 Diagnostic Data, Laboratory Data, and Procedures of Signifigance: Laboratory Results 08/10/16 08/10/16 08/10/16 Range/Units 03:20 09:20 13:00 WBC 9.43 (4.8-10.8) 10^3/uL RBC 4.91 (4.20-5.40) 10^6/uL Hgb 14.3 (12.0-16.0) g/dL Hct 42.9 (37.0-47.0) % MCV 87.4 (81-99) FL MCH 29.1 (27-31) PG MCHC 33.3 (33-37) g/dL RDW Std Deviation 43.7 (39-50) fL RDW Coeff of Kleber 13.9 (11.5-14.5) % Plt Count 279 (140-350) 10*3/uL MPV 9.3 (7.4-12.2) FL Immature Gran % (Auto) 0.2 (0-5) % Neut % (Auto) 60.2 (50-80) % Lymph % (Auto) 25.0 (10-50) % [place] % (Auto) 9.0 (5-15) % Eos % (Auto) 4.5 (0-8) % Baso % (Auto) 1.1 H (0-1) % Immature Gran # (Auto) 0.02 10*3/UL Neut # (Auto) 5.68 10*3/UL Lymph # (Auto) 2.36 10*3/uL [place] # (Auto) 0.85 H (0.3-0.8) 10*3/UL Eos # (Auto) 0.42 10*3/UL Baso # (Auto) 0.10 10*3/UL WBC Morphology Comment Normal morphology (NORM) Plt Morphology Comment Normal morphology (NORM) RBC Morph Comment Normal morphology (NORM) D-Dimer 0.37 (0.00-0.59) mg/L Sodium 144 (135-145) meq/L Potassium 3.9 (3.8-5.2) meq/L Chloride 108 (98-112) meq/L Carbon Dioxide 25 (23-33) meq/L Anion Gap 11 (5-20) BUN 15 (7-22) mg/dL Creatinine 0.9 (0.50-1.20) mg/dL Estimated GFR > 60 (>60 ml/min/1.73m(2)) BUN/Creatinine Ratio 16.66 (6-20) Glucose 92 (78-110) mg/dL Calculated Osmolality 298.0 H (267-292) mOsm/kg Calcium 9.6 (8.7-10.7) mg/dL Magnesium 2.0 (1.6-2.4) mg/dL Total Bilirubin 0.6 (0.3-1.2) mg/dL AST 39 (8-39) IU/L ALT 24 (9-52) IU/L Alkaline Phosphatase 108 (38-126) IU/L Total Creatine Kinase 37 (30-135) IU/L CK-MB (CK-2) 1.23 (0.00-5.00) NG/ML Troponin I < 0.012 < 0.012 < 0.012 (< 0.040) ng/mL Total Protein 7.2 (6.1-8.0) g/dL Albumin 3.8 (3.5-4.8) g/dL Globulin 3.4 (2.50-4.10) g/dL Albumin/Globulin Ratio 1.10 L (1.3-2.0) mg/g Amylase 119 H (30-110) U/L Lipase 307 H (23-300) IU/L // Range/Units 06:20 WBC (4.8-10.8) 10^3/uL RBC (4.20-5.40) 10^6/uL Hgb (12.0-16.0) g/dL Hct (37.0-47.0) % MCV (81-99) FL MCH (27-31) PG MCHC (33-37) g/dL RDW Std Deviation (39-50) fL RDW Coeff of Kleber (11.5-14.5) % Plt Count (140-350) 10*3/uL MPV (7.4-12.2) FL Immature Gran % (Auto) (0-5) % Neut % (Auto) (50-80) % Lymph % (Auto) (10-50) % [place] % (Auto) (5-15) % Eos % (Auto) (0-8) % Baso % (Auto) (0-1) % Immature Gran # (Auto) 10*3/UL Neut # (Auto) 10*3/UL Lymph # (Auto) 10*3/uL [place] # (Auto) (0.3-0.8) 10*3/UL Eos # (Auto) 10*3/UL Baso # (Auto) 10*3/UL WBC Morphology Comment (NORM) Plt Morphology Comment (NORM) RBC Morph Comment (NORM) D-Dimer 0.32 (0.00-0.59) mg/L Sodium 144 (135-145) meq/L Potassium 4.3 (3.8-5.2) meq/L Chloride 109 (98-112) meq/L Carbon Dioxide 26 (23-33) meq/L Anion Gap 9 (5-20) BUN 19 (7-22) mg/dL Creatinine 0.8 (0.50-1.20) mg/dL Estimated GFR > 60 (>60 ml/min/1.73m(2)) BUN/Creatinine Ratio 23.75 H (6-20) Glucose 89 (78-110) mg/dL Calculated Osmolality 298.0 H (267-292) mOsm/kg Calcium 9.1 (8.7-10.7) mg/dL Magnesium (1.6-2.4) mg/dL Total Bilirubin 0.6 (0.3-1.2) mg/dL AST 23 (8-39) IU/L ALT 24 (9-52) IU/L Alkaline Phosphatase 87 (38-126) IU/L Total Creatine Kinase (30-135) IU/L CK-MB (CK-2) (0.00-5.00) NG/ML Troponin I (< 0.040) ng/mL Total Protein 6.4 (6.1-8.0) g/dL Albumin 3.3 L (3.5-4.8) g/dL Globulin 3.1 (2.50-4.10) g/dL Albumin/Globulin Ratio 1.00 L (1.3-2.0) mg/g Amylase (30-110) U/L Lipase 261 (23-300) IU/L History and Physical pertinent to Admission: Course of Hospitalization: Is a very nice 66-year-old female who was admitted for chest pain, this resolved and patient underwent a Lexiscan stress test. Which was negative for ischemia most likely pulmonary hypertension I did talk to the patient and recommended the she follow-up with her primary care physician for further testing like an echo I also discussed this with her [id number] with the patient's permission Ivone Tse She also had elevated lipase and there was a fluid collection at the head of the pancreas which was unclear if it was the actual pancreas or a diverticular pouch on the the duodenum on CT scan she was scheduled to have an MRI of her pancreas today but unable to do so secondary to her radiation I gave her a different options to see the surgeon in the hospital or to have an MRI tomorrow as an outpatient or to follow up with Dr. Cloud as an outpatient since she knows him she opted to see Dr. Cloud and have him review the CT scan results and make a decision at that point on further testing. On the date of discharge, the patient was examined: Gen.: No acute distress, alert, nontoxic Heart: Regular rate and rhythm, no murmurs, clicks, gallops, or rubs Lungs: Clear to auscultation bilaterally, breathing is nonlabored Abdomen/GI: Normal tones on auscultation, soft, nontender, nondistended Musculoskeletal/extremities: No clubbing, cyanosis, or edema Vitals reviewed and are listed below Assessment and Plan: 1. As per discharge assessments above 2. Disposition: Home 3. Condition on discharge, stable and improved. 4. Diet: regular diet 5. Activities: resume normal activities 6. Follow-Up: Primary care physician and Dr. Cloud 1. PCP 2. 7. Medications at the Time of Discharge: Home Medications Medication Instructions Recorded Confirmed Type Calcium 500 mg PO DAILY 01/23/11 08/10/16 History Estrogens, Conj Vaginal Cream 1 appful TOPICAL PRN 08/05/13 08/10/16 History Premarin Vaginal Cream Lutein 20 mg PO AC cap 02/01/14 08/10/16 History 8. Time, care, counseling and coordination of care for this discharge is greater than 30 minutes. Exam - Vitals Vital Signs: Vital Signs Temperature 98.0 F Temperature Source Temporal Artery Scan Pulse Rate [Pulse Oximeter] 70 Pulse Rate 110 Respiratory Rate 16 Blood Pressure [Right Arm] 126/55 Pulse Ox 98 Oxygen Delivery Method Room Air Height 5 ft 6 in Weight 46.72 kg Patient Problems - Patient Problem List (1) Chest pain Current Visit: Yes Status: Acute (2) Elevated pancreatic enzyme Current Visit: Yes Status: Acute
[2016-08-11 13:48] VITALS: TEMP 98.4
--- NOTE | 2016-08-11 14:37 | DI ---
2 DAY LEXISCAN STRESS & REST MYOCARDIAL PERFUSION SCANS, 08/10/2016-08/11/2016: Clinical History: Chest pain. Previous Exam: None at this facility. Monitoring Physician: Dr. Amol Blnaco. Dose: Stress dose: 34 mCi on 08/11/2016. Rest dose: 34 mCi on 08/10/2016. Quantitative Analysis: Guerrilla RF program with low dose limited CT chest scan attenuation correctio n. Exam Quality: Excellent. Rejected Beats: Stress = 1%; Rest = 1%. HR: Stress = 77-84 b/m; Rest = 74-8 6 b/m. Left ventricular chamber sizes are normal at stress and rest. Transient ischemic dilatation ratio is 1.11 (normal Emerson TID <= 1.22; normal Lexiscan TID <= 1.33). Stress LVEF: 92%; rest LVEF: 96%. The a ttenuated corrected and non-attenuated corrected scans showed normal stress and rest myocardial perfu francesca, wall motion, and thickening. Limited CT scans of the heart show calcifications in the proximal portion of the LAD and left circumflex artery and scattered throughout the right coronary artery. The re are no lung nodules or enlarged nodes. Readin. Low normal stress and rest left ventricular chamber size, most likely secondary to left ventricul ar hypertrophy if this patient has a history of chronic hypertension. Transient ischemic dilatation r atio is normal at 1.11. 2. High normal stress and rest LVEF values of 92% and 96%, respectively. These high normal values wo uld also go along with the finding of a low normal left ventricular chamber size. 3. Normal stress and rest myocardial perfusion, wall motion, and thickening. 4. Coronary artery calcifications are present in the LAD, right coronary artery, and the left circum flex artery. There are no lung masses or evidence of hilar or mediastinal adenopathy.
== END 2016-08-11 16:04 | disposition home or self-care (01) ==
LOC: ER 03:14 → MED/SURG 06:56
PROVIDERS: ADMIT Internal Medicine; ATTEND Internal Medicine
DX: R07.9 Chest pain, unspecified (principal); R74.8 Abnormal levels of other serum enzymes
CPT/HCPCS: 36415; 71010; 71275; 74160; 78452; 80053 ×2; 82150; 82550; 82553; 83690 ×2; 83735; 84484; 85025; 85379 ×2; 93005; 93010; 94761 ×2; 99284 ×2; A9500; J2785; J1650

== ENCOUNTER → 2016-08-20 | Outpatient (CLI) | payer OTHER | LOC: US 08:54 | PROVIDERS: ATTEND Internal Medicine | DX: R06.00 Dyspnea, unspecified (principal); I10 Essential (primary) hypertension; I34.0 Nonrheumatic mitral (valve) insufficiency; I51.7 Cardiomegaly; Z86.19 Personal history of other infectious and parasitic diseases | CPT/HCPCS: 93306 ==

== ENCOUNTER → 2016-09-01 | Outpatient (CLI) | payer OTHER ==
[2016-09-01 17:23] LABS: BILIRUBIN,URINE NEGATIVE (NEG); CLARITY,URINE CLEAR (CLEAR); COLOR,URINE YELLOW; GLUCOSE, URINE (UA) NEGATIVE (NEG); NITRATE,URINE NEGATIVE (NEG); OCCULT BLOOD,URINE NEGATIVE (NEG); PROTEIN,URINE NEGATIVE (NEG); UROBILINOGEN,URINE 0.2 mg/dL (0.2)
[2016-09-01 17:33] LABS: RBC,URINE 0 /hpf; SQUAMOUS EPITHELIAL CELL,UR RARE; URINE SAMPLE TYPE CLEAN CATCH URINE; WBC,URINE 0
[2016-09-02 11:22] LABS: LIPASE 98 IU/L (23-300)
== END ==
LOC: MOB LAB 15:23
DX: R00.2 Palpitations (principal); E55.9 Vitamin D deficiency, unspecified; M34.9 Systemic sclerosis, unspecified; R13.10 Dysphagia, unspecified; M85.80 Other specified disorders of bone density and structure, unspecified site; M60.80 Other myositis, unspecified site; R74.8 Abnormal levels of other serum enzymes; Z86.010 Personal history of colon polyps
CPT/HCPCS: 36415; 81001; 82085; 82150; 82306; 82550; 83520; 83690; 86038; 86235; 86255; 99213; 99214; G0463

== ENCOUNTER 2016-09-03 07:58 | Day surgery (SDC) | payer OTHER ==
[~2016-09-03 07:58] MED LIST: LIDOCAINE 2% VISCOUS(20 MG/1 ML) - 15 ML UD CUP PO ONE; LIDOCAINE W/ SODIUM BICARB 0.5 ML SYR ONE; Lactated Ringers 1,000 ML PRIMARY IV ONE
--- NOTE | 2016-09-03 09:40 | GEN.OPNOTE ---
EGD Operative Note Surgery Date: 09/03/16 Preoperative Diagnosis: Dysphagia. Possible duodenal diverticulum. History of elevated amylase and lipase. Postoperative Diagnosis: Same. No duodenal diverticulum identified. Small hiatal hernia. Procedure: Esophagogastroduodenoscopy. Surgeon: Bertrand Cloud MD Anesthesia Provider: Richie Hennessy CRNA Anesthesia Type: MAC Indications: See preoperative diagnosis. Findings: Esophagus: [Normal. No stricture. No inflammation.] GE Junction : [Normal mucosa. Small hiatal hernia.] Fundus : [Normal] Body : [Normal] Prepyloric : [Normal] Small Intestine : [Normal. No diverticulum identified.] A lubricated flexible upper endoscope was inserted and passed through the esophagus and stomach into the duodenum. The scope was advanced as far into the duodenum as possible. I was well into the second portion of the duodenum. No abnormalities were identified. Specifically no diverticulum was identified. The scope was slowly withdrawn. The duodenal mucosa was normal. The duodenal bulb was normal. The pyloric channel was patent. The entire gastric mucosa was unremarkable. There was a small hiatal hernia estimated at 3-4 cm. The scope was withdrawn into the distal esophagus. There is no irregularity or inflammation at the GE junction. The entire esophagus was normal. There were no narrow spots or strictures. There is no inflammatory changes in the esophagus. The scope was withdrawn through the hypopharynx under suction completing the procedure. Patient tolerated the entire procedure well without complication. She was taken to outpatient surgery in stable condition. We will proceed with CT abdomen with oral and IV contrast to further identify the structure seen on a prior CAT scan. We will call those results when available. Otherwise follow-up with Dr. Spaulding Estimated Blood Loss (mL): 0 Fluids: 1000 mL of crystalloid Pathology: No specimens. Complications: None.
[2016-09-03 09:41] VITALS: RESP 14
[2016-09-03 10:08] VITALS: TEMP 97.2
== END 2016-09-03 09:59 | disposition home or self-care (01) ==
LOC: SDSC 07:58
PROVIDERS: ATTEND Surgery
DX: R13.10 Dysphagia, unspecified (principal); K44.9 Diaphragmatic hernia without obstruction or gangrene
CPT/HCPCS: 43235 ×2; J2704; J7120

== ENCOUNTER → 2016-09-04 | Outpatient (CLI) | payer OTHER ==
--- NOTE | 2016-09-04 15:04 | DI ---
CT ABDOMEN W/CONTRAST,09/04/2016 1:02 PM: Clinical History: Elevated pancreatic enzymes. Previous Exam: None at this facility. Findings: Multiple helically acquired CT images are obtained through the abdomen and pelvis following the oral and intravenous administration of contrast. The pancreas appears grossly normal without abnormal enhancement. The most superior mesenteric vein i s noted on the early contrast-enhanced images. Limited evaluation of the kidneys is unremarkable. Large amount of stool throughout the colon is note d. The pancreatic duct is slightly prominent, but this is not above normal limits. The pancreatic tail is unremarkable. The spleen and kidneys are unremarkable except for a few subcentimeter hypodensities which are too sm all to characterize. There is some mild subsegmental atelectasis in the lung bases and there is mild emphysematous changes . Impression: 1. No evidence of pancreatic mass. 2. No evidence of abscess nor pseudocyst.
== END ==
LOC: CT 12:56
PROVIDERS: ATTEND Surgery
DX: R74.8 Abnormal levels of other serum enzymes (principal); K57.10 Diverticulosis of small intestine without perforation or abscess without bleeding; R13.10 Dysphagia, unspecified
CPT/HCPCS: 74160

== ENCOUNTER → 2016-09-15 | Outpatient (CLI) | payer OTHER | LOC: MMPC 11:11 | DX: M34.9 Systemic sclerosis, unspecified (principal); R00.2 Palpitations; N95.2 Postmenopausal atrophic vaginitis; R13.14 Dysphagia, pharyngoesophageal phase; I05.2 Rheumatic mitral stenosis with insufficiency | CPT/HCPCS: 99213; G0463 ==